=== PATIENT | female | born 1930 | race Caucasian/White ===

== ENCOUNTER 2017-07-03 12:03 | Emergency (ER) | payer BC, OTHER ==
[~2017-07-03] VITALS: Ht 152.4 cm; Wt 54.0 kg
[2017-07-03 12:28] VITALS: Ht 152.4 cm; Wt 54.0 kg
--- NOTE | 2017-07-03 15:58 | RADRPT ---
PROCEDURE: XR Knee. CLINICAL INDICATION: Left knee pain. TECHNIQUE: 3 views of the left knee were obtained. The images reviewed on a PACS workstation. COMPARISON: None. FINDINGS: The bones appear intact, with no evidence of fracture, erosion, demineralization, or dislocation. M ild osteoarthritis in the medial and patellofemoral compartments are seen. A small suprapatellar kay nt effusion is seen. No soft tissue swelling is present. IMPRESSION: Mild osteoarthritis in the medial and patellofemoral compartments. Small suprapatellar joint effusion. RPTAT: HPNM Physician Mino Date Time Electronically viewed and signed by Physician Mino on 07/03/2017 15:58 /
[2017-07-03] MEDS ORDERED: ACET1TAB40 PO (16:01)
--- NOTE | 2017-07-03 16:24 | ERD ---
ER Documentation Chief Complaint Date/Time DATE: 07/03/17 TIME: 16:22 Chief Complaint left knee pain x 3 weeks denies injury HPI 87-year-old female presents to the emergency department with left knee pain for the past 3 weeks. States is constant, moderate in severity increased with movement. Patient's daughter states that they have been giving her ibuprofen 400 mg every 8 hours with some relief. Denies any fever, trauma. ROS All systems reviewed and are negative except as per history of present illness. Medications Home Meds Active Scripts Acetaminophen with Codeine (Acetaminophen-Cod #3 Tablet) 1 Each Tablet, 1 TAB PO Q6H Y for PAIN, #30 TAB Prov:KIKI ENGLE PA-C 07/03/17 Allergies Allergies: Coded Allergies: No Known Drug Allergies (Verified Allergy, Unknown, 07/03/17) PMhx/Soc Hx Cardiac Disorders: Yes (HTN) Hx Miscellaneous Medical Probl: Yes (DM, HIGH CHOLESTEROL, OSTEOARTHRITIS) Physical Exam Vitals Vital Signs Date Time Temp Pulse Resp B/P Pulse Ox O2 Delivery O2 Flow Rate FiO2 07/03/17 12:28 98.1 70 18 146/80 98 Physical Exam Const: No acute distress Head: Atraumatic Eyes: Normal Conjunctiva ENT: Normal External Ears, Nose and Mouth. Neck: Full range of motion..~ No meningismus. Resp: Clear to auscultation bilaterally Cardio: Regular rate and rhythm, no murmurs Abd: Soft, non tender, non distended. Normal bowel sounds Skin: No petechiae or rashes Back: No midline or flank tenderness Ext: Tenderness to palpation of the left anterior knee, no swelling noted restricted range of motion Neur: Awake and alert Psych: Normal Mood and Affect Procedures/MDM This is a 87-year-old female presenting to the emergency department with left knee pain for the past 3 weeks likely due to arthritis versus ligamentous versus other. There was no evidence of septic joint, fracture or dislocation. X-ray of the left knee was done and showed small effusion and arthritis. Prescription for Tylenol No. 3 was provided. Discussed to follow-up with orthopedist. Patient and her daughter understood and agreed this plan Departure Diagnosis: Primary Impression: Knee pain Condition: Stable Patient Instructions: Knee Pain, Uncertain Cause, Knee Sprain Referrals: NO PRIMARY,CARE PHYSICIAN (PCP) Additional Instructions: FOLLOW UP WITH YOUR PRIMARY CARE PHYSICIAN TOMORROW.Return to this facility if you are not improving as expected. Take all medicines as directed. Return to this facility if you are not improving as expected. KIKI ENGLE PA-C Jul 03, 2017 16:24
[2017-07-03 16:50] VITALS: BP 170/79; PULSE 66; RESP 17; TEMP 98.2
== END 2017-07-03 16:50 | disposition home or self-care (01) ==
LOC: FTE 12:03
DX: M25.562 Pain in left knee (principal)
CPT/HCPCS: 73562